=== PATIENT | female | born 1970 | race African-American/Black ===

== ENCOUNTER 2018-04-11 17:19 | Inpatient (IN) | payer OTHER ==
[2018-04-11 18:29] VITALS: BMI 29.9
--- NOTE | 2018-04-11 18:36 | HP ---
COWS - Scale Resting Pulse: 0= [place] 80 or Below Sweatin= Chills/Flushing Restless Observation: 1= Difficult to Sit Still Pupil Size: 1= Pupils >than Normal Bone or Joint Aches: 2= Severe Diffuse Aches Runny Nose/ Eye Tearin= Runny Nose/Eyes GI Upset > 30mins: 2= Nausea/Diarrhea Tremor Observation: 2= Slight Tremor Visible Yawning Observation: 1= 1-2x During Session Anxiety or Irritability: 2=Irritable/Anxious Goose Flesh Skin: 0=Smooth Skin COWS Score: 14 CIWA Score - CIWA Score Nausea/Vomitin Muscle Tremors: 2 Anxiety: 2 Agitation: 2 Paroxysmal Sweats: 1-Minimal Palms Moist Orientation: 0-Oriented Tacttile Disturbances: 1-Very Mild Itch/Numbness Auditory Disturbances: 1-Very Mild Visual Disturbances: 1-Very Mild Sensitivity Headache: 2-Mild CIWA-Ar Total Score: 14 Admission ROS [facility] - HPI Chief Complaint: i need help to sto using heroin and xanax Allergies/Adverse Reactions: Allergies Allergy/AdvReac Type Severity Reaction Status Date / Time ibuprofen Allergy Mild Rash Verified 04/11/18 17:58 No Known Drug Allergies Allergy Verified 04/11/18 17:58 History of Present Illness: this 47 years old female with heroin and xanax dependence seeking detox, withdrawal symptom,last detox in [place] in 2012 seizure withdrawal related in 05/2016 weight loss history of htn,asthma,gerd nicotine dependence bipolar disorder,depression,last medicated 2 months multiple admissions before,keep relapsing longest period of sobriety 5 years plan for rehab Exam Limitations: No Limitations - Ebola screening Have you traveled outside of the country in the last 21 days: No (N) Have you had contact with anyone from an Ebola affected area: No Do you have a fever: No - Review of Systems Constitutional: Chills, Loss of Appetite, Malaise, Night Sweats, Weakness, Unintentional Wgt. Loss EENT: reports: Tearing, Nose Congestion Respiratory: reports: No Symptoms reported Cardiac: reports: No Symptoms Reported GI: reports: Nausea, Poor Appetite, Vomiting, Abdominal cramping : reports: No Symptoms Reported Musculoskeletal: reports: Back Pain, Joint Pain, Muscle Pain, Joint Stiffness Integumentary: reports: Dryness Neuro: reports: Headache, Tremors Endocrine: reports: No Symptoms Reported Hematology: reports: No Symptoms Reported Psychiatric: reports: No Sypmtoms Reported, Judgement Intact, Mood/Affect Appropiate, Orientated x3 Patient History - Patient Medical History Hx Anemia: No Hx Asthma: Yes (on albuterol inhaler) Hx Chronic Obstructive Pulmonary Disease (COPD): No Hx Cancer: No Hx Cardiac Disorders: No Hx Congestive Heart Failure: No Hx Hypertension: Yes (non compliance last 2 moths ago) Hx Hypercholesterolemia: No Hx Pacemaker: No HX Cerebrovascular Accident: No Hx Seizures: Yes (last 07/2015) Hx Dementia: No Hx Diabetes: No Hx Gastrointestinal Disorders: Yes (gerd) Hx Liver Disease: No Hx Genitourinary Disorders: No Hx Sexually Transmitted Disorders: No Hx Renal Disease (ESRD): No Hx Thyroid Disease: No Hx Human Immunodeficiency Virus (HIV): No (last 2016 negative) Hx Hepatitis C: No Hx Depression: Yes (no med) Hx Suicide Attempt: Yes (cutter,over dose) Hx Bipolar Disorder: Yes Hx Schizophrenia: No Other Medical History: no suicidal,no homicidal - Patient Surgical History Hx Cholecystectomy: Yes ([facility] in 1997) - PPD History Previous Implant?: Yes Documented Results: Negative w/o proof Implanted On Prior [facility] Admission?: No PPD to be Administered?: Yes - Reproductive History Patient is a Female of Child Bearing Age (11 -55 yrs old): Yes LMP comment: 04/07/18 Patient : No - Smoking Cessation Smoking history: Current every day smoker Have you smoked in the past 12 months: Yes Aproximately how many cigarettes per day: 20 Cigars Per Day: 0 Hx Chewing Tobacco Use: No Initiated information on smoking cessation: Yes 'Breaking Loose' booklet given: 04/11/18 - Substance & Tx. History Hx Alcohol Use: Yes Hx Substance Use: Yes Substance Use Type: Heroin, Tranquilizers Hx Substance Use Treatment: Yes ([place] in 2012) - Substances Abused Heroin Route: Inhalation Frequency: Daily Amount used: 10-15 bags Age of first use: 23 Date of Last Use: 04/11/18 Alprazolam (Xanax) Route: Oral Frequency: Daily Amount used: 4- 2mg tablet Age of first use: 23 Date of Last Use: 04/11/18 Family Disease History - Family Disease History Family Disease History: Other: Father (dsa,alcohol,) Admission Physical Exam [facility] - Vital Signs Vital Signs: Vital Signs Temperature 97.8 F 04/11/18 17:54 Pulse Rate 80 04/11/18 17:54 Respiratory Rate 16 04/11/18 17:54 Blood Pressure 191/126 H 04/11/18 17:54 O2 Sat by Pulse Oximetry (%) - Physical General Appearance: Yes: Moderate Distress, Tremorous, Irritable, Sweating, Anxious HEENTM: Yes: Normal ENT Inspection, Pharynx Normal Respiratory: Yes: Within Normal Limits, Lungs Clear, No Respiratory Distress Neck: Yes: Within Normal Limits, Supple, Trachea in good position Breast: Yes: Breast Exam Deferred Cardiology: Yes: Within Normal Limits, Regular Rhythm, Regular Rate, S1, S2 Abdominal: Yes: Within Normal Limits, Normal Bowel Sounds, Non Tender, Flat, Soft Genitourinary: Yes: Within Normal Limits Back: Yes: Muscle Spasm Extremities: Yes: Within Normal Limits, Normal Range of Motion, Tremors Neurological: Yes: rattle leak and squeak repairer II-XII NML intact, Fully Oriented, Alert, Motor Strength 5/5 Integumentary: Yes: Dry Lymphatic: Yes: Within Normal Limits - Diagnostic (1) Opioid dependence with withdrawal Current Visit: Yes Status: Acute (2) Uncomplicated sedative, hypnotic or anxiolytic withdrawal Current Visit: Yes Status: Acute (3) Drug withdrawal seizure Current Visit: Yes Status: Acute (4) Nicotine dependence Current Visit: Yes Status: Acute (5) Essential hypertension Current Visit: Yes Status: Acute (6) Low back pain with right-sided sciatica Current Visit: Yes Status: Acute (7) Bipolar disorder Current Visit: Yes Status: Acute (8) Depression Current Visit: Yes Status: Acute Cleared for Admission [facility] - Detox or Rehab [facility] Level of Care: Medically Managed Detox Regimen/Protocol: Methadone/Valium
[2018-04-11] MEDS ORDERED: MENTHOL/PHENOL 1 EACH UD MM PRN (19:11)
[2018-04-11] MEDS ORDERED: ACETAMINOPHEN 325 MG TABLET (FP) PO PRN (19:11)
[2018-04-11] MEDS ORDERED: MAGNESIUM HYDROX 2400MG/30ML ORAL SUSPENSION 30 ML CUP PO PRN (19:11)
[2018-04-11] MEDS ORDERED: MAGNESIUM CITRATE 300 ML BOTTLE PO PRN (19:11)
[2018-04-11] MEDS ORDERED: guaiFENesin/D-METHORPHAN HB 10 ML UNIT-DOSE CUPS PO PRN (19:11)
[2018-04-11] MEDS ORDERED: P-EPHED 60MG/TRIPROLIDI 2.5MG TABLET PO PRN (19:11)
[2018-04-11] MEDS ORDERED: MAG HYDROX/AL HYDROX/SIMETH 30 ML UNIT-DOSE CUP PO PRN (19:11)
[2018-04-11] MEDS ORDERED: LOPERAMIDE HCL 2 MG CAPSULE PO PRN (19:11)
[2018-04-11] MEDS ORDERED: NICOTINE POLACRILEX 2 MG GUM BC PRN (19:11)
[2018-04-11] MEDS ORDERED: diazePAM 5 MG TABLET PO ONE (19:30)
[2018-04-11] MEDS ORDERED: METHADONE HCL 10 MG TABLET (FOR DETOX USE ONLY) PO ONE ×2 (19:30→23:00)
[2018-04-11] MEDS ORDERED: cloNIDine HCL 0.1 MG TABLET PO ONE (19:30)
--- NOTE | 2018-04-11 19:36 | PN ---
S Progress Note Note: ekg poor quality,repeat in am at 0900 on 04/12/18
[2018-04-11] MEDS: CYCLOBENZAPRINE HCL 10 MG TABLET (FP) PO PRN (22:41)
[2018-04-11] MEDS: cloNIDine HCL 0.1 MG TABLET PO SCH (22:41)
[2018-04-11] MEDS: LISINOPRIL 20 MG TABLET (FP) PO SCH (22:41)
[2018-04-11] MEDS: MELATONIN 5 MG TABLETS PO PRN (22:41)
[2018-04-11] MEDS: THIAMINE HCL 100 MG TABLET (FP) PO SCH (22:42)
[2018-04-11] MEDS: diazePAM 5 MG TABLET PO SCH (22:42)
[2018-04-11 22:47] LABS: URINE APPEARANCE CLOUDY; URINE BILIRUBIN NEGATIVE (<2.0 mg/dL); URINE COLOR AMBER; URINE GLUCOSE (UA) NEGATIVE (NEGATIVE); URINE KETONE NEGATIVE (NEGATIVE); URINE LEUK ESTERASE NEGATIVE (NEGATIVE); URINE NITRITE NEGATIVE (NEGATIVE); URINE PROTEIN 1+ (NEGATIVE); URINE UROBILINOGEN 4.0 E.U/dl mg/dL (0.2-1.0)
[2018-04-11 22:54] LABS: EPI CELLS RARE /HPF (FEW); GRANULAR CASTS 2 /lpf; URINE HYALINE CAST 2 /lpf; URINE MUCUS RARE
[2018-04-12] MEDS: diazePAM 5 MG TABLET PO SCH ×3 (05:13→23:18)
--- NOTE | 2018-04-12 09:16 | CONSULT ---
[facility] Psychiatric Consult - Data Date of interview: 04/12/18 Admission source: [facility] Identifying data: This is a 47 years old female, single mother of four, homeless , unemployed, onPA support, with psychiatric hospitalization history, history of Bipolar Disordewr, reports Heroin, Xanax, Alcohol and Nicotine ndependence history, withdrawal symptoms and seeking detox. Substance Abuse History: Smoking history: Current every day smoker. Have you smoked in the past 12 months: Yes. Aproximately how many cigarettes per day: 20. Cigars Per Day: 0. Hx Chewing Tobacco Use: No. Initiated information on smoking cessation: Yes. 'Breaking Loose' booklet given: 04/11/18. - Substance & Tx. History. Hx Alcohol Use: Yes. Hx Substance Use: Yes. Substance Use Type : Heroin, Tranquilizers. Hx Substance Use Treatment: Yes ([place] in 2012) . - Substances Abused. Heroin. Route: Inhalation. Frequency: Daily. Amount used: 10-15 bags. Age of first use: 23. Date of Last Use: 04/11/18. * * Alprazolam (Xanax). Route: Oral. Frequency: Daily. Amount used: 4- 2mg tablet. Age of first use: 23. Date of Last Use: 04/11/18 Medical History: Asthma, LBP, HTN, GERD, Seizure history. Psychiatric History: Patient reports top carry Bipolar Disorder, reports most recent psychiatric admission on 2015 at [facility], denies suicidal, homicidal history, as per computer there is a history of OD and Cutting self in the past, denies suicidal homicidal ideation at this time. Patient reports taking prior to admission: Trazodone 100 mg po qhs. Depakote 1000mg po bid. Seroquel 300mg po bid. Reports not taking medications for the last two weeks. Physical/Sexual Abuse/Trauma History: Denies Additional Comment: Trazodone 100 mg po qhs. Depakote 1000mg po bid. Seroquel 300mg po bid Psychiatric Findings - Problem List ([place] 1, 2,3) (1) HTN (hypertension) Current Visit: Yes Status: Acute (2) GERD (gastroesophageal reflux disease) Current Visit: Yes Status: Acute (3) Bipolar disorder Current Visit: Yes Status: Acute (4) Depression Current Visit: Yes Status: Acute (5) Essential hypertension Current Visit: Yes Status: Acute (6) Low back pain with right-sided sciatica Current Visit: Yes Status: Acute (7) Nicotine dependence Current Visit: Yes Status: Acute (8) Opioid dependence with withdrawal Current Visit: Yes Status: Acute (9) Uncomplicated sedative, hypnotic or anxiolytic withdrawal Current Visit: Yes Status: Acute - Initial Treatment Plan Initial Treatment Plan: Trazodone 100 mg po qhs. Depakote 600mg po bid. Seroquel 300mg po qhs. Depakote blood level
--- NOTE | 2018-04-12 09:46 | PN ---
[facility] CIWA - CIWA Score Nausea/Vomitin-No Nausea/No Vomiting Muscle Tremors: 4-Moderate,w/Arms Extend Anxiety: 3 Agitation: 3 Paroxysmal Sweats: 3 Orientation: 0-Oriented Tacttile Disturbances: 0-None Auditory Disturbances: 0-None Visual Disturbances: 0-None Headache: 0-None Present CIWA-Ar Total Score: 13 [facility] COWS - Scale Resting Pulse: 0= [place] 80 or Below Sweatin=Flushed/Facial Moisture Restless Observation: 0= Sits Still Pupil Size: 0= Normal to Room Light Bone or Joint Aches: 2= Severe Diffuse Aches Runny Nose/ Eye Tearin= Runny Nose/Eyes GI Upset > 30mins: 0= None Tremor Observation of Outstretched Hands: 2= Slight Tremor Visible Yawning Observation: 2= >3x During Session Anxiety or Irritability: 2=Irritable/Anxious Goose Flesh Skin: 0=Smooth Skin COWS Score: 12 S Progress Note (SOAP) Subjective: sweats shakes interrupted sleep agitation anxiety body aches irritable Objective: 04/12/18 10:37 Vital Signs Temperature 98.2 F 04/12/18 10:27 Pulse Rate 70 04/12/18 10:27 Respiratory Rate 18 04/12/18 10:27 Blood Pressure 156/90 04/12/18 10:27 O2 Sat by Pulse Oximetry (%) Laboratory Tests 04/11/18 04/12/18 22:30 07:00 WBC 5.5 RBC 3.87 Hgb 12.1 Hct 37.1 MCV 96.0 MCH 31.4 MCHC 32.7 RDW 13.1 Plt Count 206 MPV 9.1 Urine Color Charlene Urine Appearance Cloudy Urine pH 5.0 Ur Specific [place] 1.025 Urine Protein 1+ H Urine Glucose (UA) Negative Urine Ketones Negative Urine Blood 3+ H Urine Nitrite Negative Urine Bilirubin Negative Urine Urobilinogen 4.0 e.u/dl H Ur Leukocyte Esterase Negative Urine WBC (Auto) 8 Urine RBC (Auto) 8 Ur Epithelial Cells Rare Hyaline Casts 2 Granular Casts 2 Urine Mucus Rare rest of labs pending aao3 ambulating no acute distress Assessment: 04/12/18 10:37 withdrawal sx Plan: continue detox increase fluids rest of labs pending
--- NOTE | 2018-04-12 09:49 | EKG ---
Test Reason : Blood Pressure : / mmHG Vent. Rate : 074 BPM Atrial Rate : 074 BPM P-R Int : 152 ms QRS Dur : 054 ms QT Int : 334 ms P-R-T Axes : 045 041 005 degrees QTc Int : 370 ms NORMAL SINUS RHYTHM BASELINE ARTIFACT NONSPECIFIC ST AND T WAVE ABNORMALITY ABNORMAL ECG NO PREVIOUS ECGS AVAILABLE Confirmed by ERIC DOBBS, MARVIN ([id number]) on 04/12/2018 9:49:31 AM Referred By: Confirmed By:MARVIN REYES MD
[2018-04-12] MEDS ORDERED: METHADONE HCL 10 MG TABLET (FOR DETOX USE ONLY) PO SCH (10:00)
[2018-04-12 10:26] LABS: HEMATOCRIT 37.1 % (32.4-45.2); HEMOGLOBIN 12.1 GM/dL (10.7-15.3); MCH 31.4 pg (25.7-33.7); MCHC 32.7 g/dl (32.0-36.0); MEAN PLT VOLUME 9.1 fl (7.5-11.1); PLATELET COUNT 206 K/MM3 (134-434); RBC 3.87 M/mm3 (3.60-5.2); RDW 13.1 % (11.6-15.6); WHITE BLOOD COUNT 5.5 K/mm3 (4.0-10.0)
[2018-04-12] MEDS: PRENATAL VITAMINS W/ FOLIC ACID TABLET (FP) PO SCH (10:37)
[2018-04-12] MEDS: LISINOPRIL 20 MG TABLET (FP) PO SCH ×2 (10:37→23:18)
[2018-04-12] MEDS: CYCLOBENZAPRINE HCL 10 MG TABLET (FP) PO PRN ×2 (10:37→23:18)
[2018-04-12] MEDS: diazePAM 5 MG TABLET PO PRN (10:37)
[2018-04-12] MEDS: cloNIDine HCL 0.1 MG TABLET PO SCH ×2 (10:37→23:19)
[2018-04-12] MEDS: DIVALPROEX SODIUM 500 MG TABLET E.C. PO SCH ×2 (10:37→23:18)
[2018-04-12 10:52] LABS: ALBUMIN 2.8 g/dl (3.4-5.0); ALK PHOS 120 U/L (45-117); ANION GAP 7 MMOL/L (8-16); BILIRUBIN,TOTAL 0.4 mg/dL (0.2-1); BLOOD UREA NITROGEN 18 mg/dL (7-18); CALCIUM 8.9 mg/dL (8.5-10.1); CHLORIDE 106 mmol/L (98-107); CO2 29 mmol/L (21-32); GLUCOSE,RANDOM 87 mg/dL (74-106); POTASSIUM 4.8 mmol/L (3.5-5.1); SGOT/AST 20 U/L (15-37); SGPT/ALT 21 U/L (13-61); SODIUM 142 mmol/L (136-145); TOT PROT 6.4 g/dl (6.4-8.2)
--- NOTE | 2018-04-12 15:48 | PN ---
S Progress Note Note: pt seen c/o pelvic pain. pt states her pain is not new she has experienced this same pain in the past especially when she is detoxing. Pt states she has had normal urine output and has moved her bowels. Pt is allergic to ibuprofen and is refusing to go to our main hospital for evaluation. therefore, pt will be ordered lidocaine patch, flexiril, and u/s in the morning a one time dose of baclofen. encouraged warm compress prn. pt in agreement.
[2018-04-12] MEDS ORDERED: LIDOCAINE 5% TOPICAL PATCH TP ONE (17:00)
[2018-04-12] MEDS ORDERED: BACLOFEN 10 MG TABLET (FP) PO ONE (17:00)
[2018-04-12] MEDS ORDERED: LIDOCAINE PATCH REMOVAL MC SCH (22:00)
[2018-04-12] MEDS: THIAMINE HCL 100 MG TABLET (FP) PO SCH (23:18)
[2018-04-12] MEDS: traZODone HCL 100 MG TABLET (FP) PO SCH (23:18)
[2018-04-12] MEDS: QUEtiapine FUMARATE 300 MG TABLET PO SCH (23:19)
[2018-04-13] MEDS ORDERED: cloNIDine HCL 0.1 MG TABLET PO ONE (06:39)
--- NOTE | 2018-04-13 06:43 | PN ---
[facility] Progress Note Note: Patient's blood pressure this morning is B/P 157/108. Patient is asymptomatic. Vital Signs Temperature 97.9 F 04/13/18 06:39 Pulse Rate 74 04/13/18 06:39 Respiratory Rate 18 04/13/18 06:39 Blood Pressure 157/108 H 04/13/18 06:39 O2 Sat by Pulse Oximetry (%) Action: Clonidine 0.1mg tablet oral ordered
[2018-04-13] MEDS: DIVALPROEX SODIUM 500 MG TABLET E.C. PO SCH ×2 (10:07→22:08)
[2018-04-13] MEDS: diazePAM 5 MG TABLET PO SCH ×2 (10:08→22:08)
[2018-04-13] MEDS: PRENATAL VITAMINS W/ FOLIC ACID TABLET (FP) PO SCH (10:08)
[2018-04-13] MEDS: amLODIPine BESYLATE 10 MG TABLET (FP) PO SCH (10:09)
[2018-04-13] MEDS: LOSARTAN POTASSIUM 50 MG TABLET (FP) PO SCH (10:09)
[2018-04-13] MEDS: METHADONE HCL 5 MG TABLET (FOR DETOX USE ONLY) PO SCH (10:09)
--- NOTE | 2018-04-13 10:17 | PN ---
[facility] CIWA - CIWA Score Nausea/Vomitin-No Nausea/No Vomiting Muscle Tremors: 3 Anxiety: 3 Agitation: 3 Paroxysmal Sweats: 3 Orientation: 0-Oriented Tacttile Disturbances: 0-None Auditory Disturbances: 0-None Visual Disturbances: 0-None Headache: 0-None Present CIWA-Ar Total Score: 12 S COWS - Scale Resting Pulse: 0= [place] 80 or Below Sweatin=Flushed/Facial Moisture Restless Observation: 1= Difficult to Sit Still Pupil Size: 0= Normal to Room Light Bone or Joint Aches: 2= Severe Diffuse Aches Runny Nose/ Eye Tearin= None GI Upset > 30mins: 0= None Tremor Observation of Outstretched Hands: 2= Slight Tremor Visible Yawning Observation: 2= >3x During Session Anxiety or Irritability: 2=Irritable/Anxious Goose Flesh Skin: 0=Smooth Skin COWS Score: 11 [facility] Progress Note (SOAP) Subjective: pelvic pain subsided not as painful as yesterday sweats shakes chills body aches Objective: 04/13/18 10:14 Vital Signs Temperature 98.6 F 04/13/18 09:56 Pulse Rate 78 04/13/18 09:56 Respiratory Rate 16 04/13/18 09:56 Blood Pressure 142/96 04/13/18 09:56 O2 Sat by Pulse Oximetry (%) Laboratory Tests 04/11/18 04/12/18 04/12/18 22:30 07:00 07:00 WBC 5.5 RBC 3.87 Hgb 12.1 Hct 37.1 MCV 96.0 MCH 31.4 MCHC 32.7 RDW 13.1 Plt Count 206 MPV 9.1 Sodium 142 Potassium 4.8 Chloride 106 Carbon Dioxide 29 Anion Gap 7 L BUN 18 Creatinine 1.0 Creat Clearance w eGFR 59.69 Random Glucose 87 Calcium 8.9 Total Bilirubin 0.4 AST 20 ALT 21 Alkaline Phosphatase 120 H Total Protein 6.4 Albumin 2.8 L Urine Color Charlene Urine Appearance Cloudy Urine pH 5.0 Ur Specific [place] 1.025 Urine Protein 1+ H Urine Glucose (UA) Negative Urine Ketones Negative Urine Blood 3+ H Urine Nitrite Negative Urine Bilirubin Negative Urine Urobilinogen 4.0 e.u/dl H Ur Leukocyte Esterase Negative Urine WBC (Auto) 8 Urine RBC (Auto) 8 Ur Epithelial Cells Rare Hyaline Casts 2 Granular Casts 2 Urine Mucus Rare RPR Titer 04/12/18 07:00 WBC RBC Hgb Hct MCV MCH MCHC RDW Plt Count MPV Sodium Potassium Chloride Carbon Dioxide Anion Gap BUN Creatinine Creat Clearance w eGFR Random Glucose Calcium Total Bilirubin AST ALT Alkaline Phosphatase Total Protein Albumin Urine Color Urine Appearance Urine pH Ur Specific [place] Urine Protein Urine Glucose (UA) Urine Ketones Urine Blood Urine Nitrite Urine Bilirubin Urine Urobilinogen Ur Leukocyte Esterase Urine WBC (Auto) Urine RBC (Auto) Ur Epithelial Cells Hyaline Casts Granular Casts Urine Mucus RPR Titer Nonreactive aaox3 lying in bed no acute distress u/s pending Assessment: 04/13/18 10:16 withdrawal sx Plan: continue detox increase fluids u/s pending continue lidocaine patch muscle relaxant prn repeat u/a with c/s
[2018-04-13] MEDS: CYCLOBENZAPRINE HCL 10 MG TABLET (FP) PO PRN (12:03)
--- NOTE | 2018-04-13 15:10 | PN ---
S Progress Note Note: U/S results shows pt has fibroids. copy provided to pt. 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
--- NOTE | 2018-04-13 16:11 | EKG ---
Test Reason : Blood Pressure : / mmHG Vent. Rate : 075 BPM Atrial Rate : 075 BPM P-R Int : 136 ms QRS Dur : 086 ms QT Int : 394 ms P-R-T Axes : 062 022 039 degrees QTc Int : 439 ms NORMAL SINUS RHYTHM POSSIBLE LEFT ATRIAL ENLARGEMENT ST ELEVATION, CONSIDER EARLY REPOLARIZATION BORDERLINE ECG WHEN COMPARED WITH ECG OF 11-APR-2018 19:26, ST ELEVATION HAS REPLACED ST DEPRESSION IN ANTERIOR LEADS NONSPECIFIC T WAVE ABNORMALITY HAS REPLACED INVERTED T WAVES IN INFERIOR LEADS NONSPECIFIC T WAVE ABNORMALITY NO LONGER EVIDENT IN LATERAL LEADS QT HAS LENGTHENED Confirmed by MD LENNY, GLADYS ([id number]) on 04/13/2018 4:11:16 PM Referred By: Confirmed By:GLADYS GALVEZ MD
[2018-04-13] MEDS: QUEtiapine FUMARATE 300 MG TABLET PO SCH (22:08)
[2018-04-13] MEDS: THIAMINE HCL 100 MG TABLET (FP) PO SCH (22:08)
[2018-04-13] MEDS: traZODone HCL 100 MG TABLET (FP) PO SCH (22:08)
[2018-04-14] MEDS ORDERED: IBUPROFEN 400 MG TABLET (FP) PO ONE (09:24)
[2018-04-14] MEDS: METHADONE HCL 5 MG TABLET (FOR DETOX USE ONLY) PO SCH (10:20)
[2018-04-14] MEDS: DIVALPROEX SODIUM 500 MG TABLET E.C. PO SCH ×2 (10:20→23:12)
[2018-04-14] MEDS: LOSARTAN POTASSIUM 50 MG TABLET (FP) PO SCH (10:20)
[2018-04-14] MEDS: PRENATAL VITAMINS W/ FOLIC ACID TABLET (FP) PO SCH (10:20)
[2018-04-14] MEDS: diazePAM 5 MG TABLET PO SCH ×2 (10:20→23:12)
[2018-04-14] MEDS: amLODIPine BESYLATE 10 MG TABLET (FP) PO SCH (10:20)
[2018-04-14] MEDS: CYCLOBENZAPRINE HCL 10 MG TABLET (FP) PO PRN (10:22)
[2018-04-14] MEDS ORDERED: COLLOIDAL OATMEAL 1 BAR EACH TP PRN (10:34)
--- NOTE | 2018-04-14 10:34 | PN ---
[facility] Progress Note (SOAP) Subjective: body aches sweats irritable pain is more tolerable but i want something to keep this pain from throbbing. Objective: 04/14/18 10:33 Vital Signs Temperature 97.9 F 04/14/18 09:35 Pulse Rate 76 04/14/18 09:35 Respiratory Rate 16 04/14/18 09:35 Blood Pressure 132/79 04/14/18 09:35 O2 Sat by Pulse Oximetry (%) aaox3 ambulating no acute distress Assessment: 04/14/18 10:35 withdrawal sx Plan: continue detox increase fluids motrin 800mg ordered.
[2018-04-14] MEDS ORDERED: diphenhydrAMINE HCL 25 MG CAPSULE (FP) PO PRN (10:38)
--- NOTE | 2018-04-14 10:38 | PN ---
S Progress Note Note: pt states she is not allergic to motrin. the only thing that she experienced a long time ago was a mild rash which disappeared afterwards. Pt believes it was not motrin related. Motrin ordered for patient to assist with her throbbing pain to her pelvic area. will continue to monitor for any allergic related issues and how well her pain is tolerated. benadryl also ordered prn.
[2018-04-14] MEDS: LIDOCAINE 5% TOPICAL PATCH TP SCH (12:47)
[2018-04-14] MEDS ORDERED: PANTOPRAZOLE 40 MG TABLET (FP) PO ONE (14:00)
[2018-04-14] MEDS ORDERED: IBUPROFEN 400 MG TABLET (FP) PO PRN (15:40)
[2018-04-14] MEDS: hydrOXYzine PAMOATE 25 MG CAPSULE (FP) PO PRN ×2 (18:44→23:11)
[2018-04-14] MEDS: diazePAM 5 MG TABLET PO PRN (18:45)
[2018-04-14 19:23] LABS: URINE APPEARANCE CLEAR; URINE BILIRUBIN NEGATIVE (<2.0 mg/dL); URINE COLOR YELLOW; URINE GLUCOSE (UA) NEGATIVE (NEGATIVE); URINE KETONE NEGATIVE (NEGATIVE); URINE LEUK ESTERASE NEGATIVE (NEGATIVE); URINE NITRITE NEGATIVE (NEGATIVE); URINE PROTEIN NEGATIVE (NEGATIVE)
[2018-04-14] MEDS: QUEtiapine FUMARATE 300 MG TABLET PO SCH (23:11)
[2018-04-14] MEDS: THIAMINE HCL 100 MG TABLET (FP) PO SCH (23:11)
[2018-04-14] MEDS: traZODone HCL 100 MG TABLET (FP) PO SCH (23:12)
[2018-04-14] MEDS: MELATONIN 5 MG TABLETS PO PRN (23:13)
[2018-04-15] MEDS: LIDOCAINE PATCH REMOVAL MC SCH ×2 (00:31→22:24)
[2018-04-15] MEDS ORDERED: METHADONE HCL 10 MG TABLET (FOR DETOX USE ONLY) PO SCH (10:00)
[2018-04-15] MEDS ORDERED: diazePAM 5 MG TABLET PO SCH (10:00)
[2018-04-15] MEDS: LOSARTAN POTASSIUM 50 MG TABLET (FP) PO SCH (10:11)
[2018-04-15] MEDS: amLODIPine BESYLATE 10 MG TABLET (FP) PO SCH (10:11)
[2018-04-15] MEDS: PRENATAL VITAMINS W/ FOLIC ACID TABLET (FP) PO SCH (10:11)
[2018-04-15] MEDS: PANTOPRAZOLE 40 MG TABLET (FP) PO SCH (10:11)
[2018-04-15] MEDS: DIVALPROEX SODIUM 500 MG TABLET E.C. PO SCH ×2 (10:11→22:23)
[2018-04-15] MEDS: LIDOCAINE 5% TOPICAL PATCH TP SCH (10:13)
--- NOTE | 2018-04-15 11:11 | PN ---
[facility] Progress Note (SOAP) Subjective: feeling better tired Objective: 04/15/18 11:11 Vital Signs Temperature 97.7 F 04/15/18 09:10 Pulse Rate 81 04/15/18 09:10 Respiratory Rate 16 04/15/18 09:10 Blood Pressure 119/81 04/15/18 09:10 O2 Sat by Pulse Oximetry (%) aaox3 ambulating no acute distress Assessment: 04/15/18 11:11 mild withdrawal sx Plan: continue detox increase fluids d/c in am
[2018-04-15] MEDS: IBUPROFEN 400 MG TABLET (FP) PO PRN (12:14)
[2018-04-15] MEDS: CYCLOBENZAPRINE HCL 10 MG TABLET (FP) PO PRN ×2 (17:29→22:24)
[2018-04-15] MEDS: hydrOXYzine PAMOATE 25 MG CAPSULE (FP) PO PRN (17:29)
[2018-04-15] MEDS: traZODone HCL 100 MG TABLET (FP) PO SCH (22:23)
[2018-04-15] MEDS: THIAMINE HCL 100 MG TABLET (FP) PO SCH (22:23)
[2018-04-15] MEDS: QUEtiapine FUMARATE 300 MG TABLET PO SCH (22:24)
[2018-04-16] MEDS ORDERED: METHADONE HCL 5 MG TABLET (FOR DETOX USE ONLY) PO SCH (06:00)
[2018-04-16 06:13] VITALS: TEMP 98.1
--- NOTE | 2018-04-16 08:48 | DS ---
[facility] Detox Discharge Summary Admission Date: 04/11/18 Discharge Date: 04/16/18 - History Present History: Opioid Dependence - Physical Exam Results Vital Signs: Vital Signs Temperature 98.1 F 04/16/18 06:13 Pulse Rate 79 04/16/18 06:13 Respiratory Rate 18 04/16/18 06:13 Blood Pressure 124/74 04/16/18 06:13 O2 Sat by Pulse Oximetry (%) - Treatment Hospital Course: Detox Protocol Followed, Detoxed Safely, Responded well, Discharged Condition Good, Rehab Referral Accepted - Medication Discharge Medications: Ambulatory Orders Clonidine HCl 0.2 mg PO BID 04/11/18 Lisinopril 20 mg PO BID 04/11/18 Omeprazole 80 mg PO DAILY 04/11/18 Divalproex [Depakote -] 1,000 mg PO BID #60 tablet.ec 04/12/18 Quetiapine Fumarate [Seroquel] 300 mg PO BID #60 tablet 04/12/18 traZODone HCL [Trazodone HCl] 100 mg PO HS #30 tablet 04/12/18 - Diagnosis (1) Asthma Current Visit: Yes Status: Chronic Qualifiers: Asthma severity: mild (2) Bipolar disorder Current Visit: Yes Status: Chronic (3) Depression Current Visit: Yes Status: Chronic (4) Drug withdrawal seizure Current Visit: Yes Status: Acute (5) Essential hypertension Current Visit: Yes Status: Chronic (6) GERD (gastroesophageal reflux disease) Current Visit: Yes Status: Chronic Qualifiers: Esophagitis presence: without esophagitis Qualified Code(s): K21.9 - Gastro -esophageal reflux disease without esophagitis (7) HTN (hypertension) Current Visit: Yes Status: Chronic Qualifiers: Hypertension type: essential hypertension Qualified Code(s): I10 - Essential (primary) hypertension (8) Low back pain with right-sided sciatica Current Visit: Yes Status: Acute (9) Nicotine dependence Current Visit: Yes Status: Chronic Qualifiers: Nicotine product type: cigarettes Substance use status: uncomplicated Qualified Code(s): F17.210 - Nicotine dependence, cigarettes, uncomplicated (10) Opioid dependence with withdrawal Current Visit: Yes Status: Chronic (11) Uncomplicated sedative, hypnotic or anxiolytic withdrawal Current Visit: Yes Status: Chronic - AMA Did Patient Leave Against Medical Advice: No (referred [facility])
[2018-04-16] MEDS: IBUPROFEN 400 MG TABLET (FP) PO PRN (09:11)
[2018-04-16] MEDS: DIVALPROEX SODIUM 500 MG TABLET E.C. PO SCH (09:11)
[2018-04-16] MEDS: PANTOPRAZOLE 40 MG TABLET (FP) PO SCH (09:11)
[2018-04-16] MEDS: amLODIPine BESYLATE 10 MG TABLET (FP) PO SCH (09:11)
[2018-04-16] MEDS: LOSARTAN POTASSIUM 50 MG TABLET (FP) PO SCH (09:11)
[2018-04-16] MEDS: CYCLOBENZAPRINE HCL 10 MG TABLET (FP) PO PRN (09:15)
[2018-04-16 09:27] VITALS: BP 145/101; PULSE 98
[2018-04-16] MEDS: LIDOCAINE 5% TOPICAL PATCH TP SCH (10:23)
[2018-04-16] MEDS: PRENATAL VITAMINS W/ FOLIC ACID TABLET (FP) PO SCH (10:23)
== END 2018-04-16 11:25 | disposition other institution (70) | DRG 773 ==
LOC: YASAS 17:19 → Y6N 19:12
PROC: HZ2ZZZZ Detoxification Services for Substance Abuse Treatment (ICD-10-PCS; principal; 2018-04-11)
DX: F11.23 Opioid dependence with withdrawal (principal); F13.230 Sedative, hypnotic or anxiolytic dependence with withdrawal, uncomplicated; F17.210 Nicotine dependence, cigarettes, uncomplicated; F31.9 Bipolar disorder, unspecified; F32.9 Major depressive disorder, single episode, unspecified; I10 Essential (primary) hypertension; K21.9 Gastro-esophageal reflux disease without esophagitis; M54.41 Lumbago with sciatica, right side; G40.509 Epileptic seizures related to external causes, not intractable, without status epilepticus; J45.909 Unspecified asthma, uncomplicated; D25.9 Leiomyoma of uterus, unspecified; Z91.5 Personal history of self-harm
CPT/HCPCS: 36415; 76856-TC; 80053; 80164; 81003; 81015; 85027; 86593; 87086; 93005; 93010; J0475; J0735

== ENCOUNTER 2018-04-16 11:19 | Inpatient (IN) | payer OTHER ==
[2018-04-16] MEDS ORDERED: IBUPROFEN 400 MG TABLET (FP) PO PRN (12:45)
[2018-04-16] MEDS ORDERED: MENTHOL/PHENOL 1 EACH UD MM PRN (12:45)
[2018-04-16] MEDS ORDERED: guaiFENesin/D-METHORPHAN HB 10 ML UNIT-DOSE CUPS PO PRN (12:45)
[2018-04-16] MEDS ORDERED: NICOTINE POLACRILEX 4 MG GUM BUC PRN (12:45)
[2018-04-16] MEDS ORDERED: MAGNESIUM HYDROX 2400MG/30ML ORAL SUSPENSION 30 ML CUP PO PRN (12:45)
[2018-04-16] MEDS ORDERED: P-EPHED 60MG/TRIPROLIDI 2.5MG TABLET PO PRN (12:45)
[2018-04-16] MEDS ORDERED: MAG HYDROX/AL HYDROX/SIMETH 30 ML UNIT-DOSE CUP PO PRN (12:45)
[2018-04-16] MEDS ORDERED: LOPERAMIDE HCL 2 MG CAPSULE PO PRN (12:45)
[2018-04-16] MEDS ORDERED: MAGNESIUM CITRATE 300 ML BOTTLE PO PRN (12:45)
--- NOTE | 2018-04-16 13:41 | HP ---
[facility] Rehab Assess/Revision - Admission History Admitted to Rehab from: [facility] Date of Admission to Rehab: 04/16/18 - Vital signs Vital Signs: Vital Signs Period Temp Pulse Resp BP Sys/Courtney Pulse Ox Last 24 Hr 98.0 F-98.2 F 91-92 18-18 124-149/81-93 - Findings Detox History & Physical reviewed: Yes Concur with findings: Yes Inpatient Rehab Admission - Initial Determination Are CD services needed?: Yes Free of communicable disease: Yes Not in need of hospitalization: Yes - Rehab Admission Criteria Patient is meeting Inpatient Rehab admission criteria:: Yes
[2018-04-16] MEDS: CYCLOBENZAPRINE HCL 10 MG TABLET (FP) PO PRN (14:52)
[2018-04-16] MEDS: LIDOCAINE 5% TOPICAL PATCH TP SCH (14:52)
[2018-04-16] MEDS: IBUPROFEN 600 MG TABLET (FP) PO PRN (17:53)
[2018-04-16] MEDS: LIDOCAINE PATCH REMOVAL MC SCH (21:40)
[2018-04-16] MEDS: THIAMINE HCL 100 MG TABLET (FP) PO SCH (21:40)
[2018-04-16] MEDS ORDERED: MELATONIN 5 MG TABLETS PO PRN (22:00)
[2018-04-17] MEDS: IBUPROFEN 600 MG TABLET (FP) PO PRN (08:23)
[2018-04-17] MEDS: CYCLOBENZAPRINE HCL 10 MG TABLET (FP) PO PRN (08:24)
[2018-04-17] MEDS: LIDOCAINE 5% TOPICAL PATCH TP SCH (09:16)
[2018-04-17] MEDS: NICOTINE 21 MG/24 HOURS TOPICAL PATCH TD SCH (09:17)
[2018-04-17] MEDS: PRENATAL VITAMINS W/ FOLIC ACID TABLET (FP) PO SCH (09:17)
[2018-04-17] MEDS: hydrOXYzine PAMOATE 50 MG CAPSULE (FP) PO PRN (09:20)
[2018-04-17] MEDS ORDERED: PATIENT'S OWN MEDICATION (NON-FORMULARY) (Clonidine Hcl [Clonidine Hcl] 0.2 MG) PO SCH (10:30)
[2018-04-17] MEDS: cloNIDine HCL 0.1 MG TABLET PO SCH ×2 (11:17→21:39)
[2018-04-17] MEDS: LISINOPRIL 20 MG TABLET (FP) PO SCH ×2 (11:17→21:39)
[2018-04-17] MEDS ORDERED: DIVALPROEX SODIUM 500 MG TABLET E.C. PO SCH (12:00)
[2018-04-17] MEDS ORDERED: PT OWN MED DRAWER 7, Y5N ONE (20:30)
[2018-04-17] MEDS: QUEtiapine FUMARATE 300 MG TABLET PO SCH (21:38)
[2018-04-17] MEDS: traZODone HCL 100 MG TABLET (FP) PO SCH (21:39)
[2018-04-17] MEDS: THIAMINE HCL 100 MG TABLET (FP) PO SCH (21:39)
[2018-04-17] MEDS: DIVALPROEX SODIUM 500 MG TABLET E.C. PO SCH (21:40)
[2018-04-17] MEDS: LIDOCAINE PATCH REMOVAL MC SCH (21:40)
[2018-04-17] MEDS: RANITIDINE HCL 150 MG TABLET (FP) PO SCH (22:03)
[2018-04-18] MEDS: CYCLOBENZAPRINE HCL 10 MG TABLET (FP) PO PRN ×2 (06:39→21:38)
[2018-04-18] MEDS: IBUPROFEN 600 MG TABLET (FP) PO PRN ×2 (06:39→21:38)
[2018-04-18] MEDS: LIDOCAINE 5% TOPICAL PATCH TP SCH (09:07)
[2018-04-18] MEDS: PRENATAL VITAMINS W/ FOLIC ACID TABLET (FP) PO SCH (09:07)
[2018-04-18] MEDS: NICOTINE 21 MG/24 HOURS TOPICAL PATCH TD SCH (09:07)
[2018-04-18] MEDS: cloNIDine HCL 0.1 MG TABLET PO SCH ×2 (09:07→21:38)
[2018-04-18] MEDS: DIVALPROEX SODIUM 500 MG TABLET E.C. PO SCH ×2 (09:07→21:38)
[2018-04-18] MEDS: LISINOPRIL 20 MG TABLET (FP) PO SCH ×2 (09:08→21:38)
[2018-04-18] MEDS: RANITIDINE HCL 150 MG TABLET (FP) PO SCH ×2 (09:08→21:38)
[2018-04-18] MEDS: THIAMINE HCL 100 MG TABLET (FP) PO SCH (21:38)
[2018-04-18] MEDS: LIDOCAINE PATCH REMOVAL MC SCH (22:49)
[2018-04-18] MEDS: QUEtiapine FUMARATE 300 MG TABLET PO SCH (22:49)
[2018-04-18] MEDS: traZODone HCL 100 MG TABLET (FP) PO SCH (22:49)
[2018-04-19] MEDS: IBUPROFEN 600 MG TABLET (FP) PO PRN (06:13)
[2018-04-19] MEDS: CYCLOBENZAPRINE HCL 10 MG TABLET (FP) PO PRN ×3 (06:13→21:18)
[2018-04-19] MEDS: LISINOPRIL 20 MG TABLET (FP) PO SCH ×2 (11:45→21:17)
[2018-04-19] MEDS: cloNIDine HCL 0.1 MG TABLET PO SCH ×2 (11:45→21:17)
[2018-04-19] MEDS: PRENATAL VITAMINS W/ FOLIC ACID TABLET (FP) PO SCH (11:49)
[2018-04-19] MEDS: DIVALPROEX SODIUM 500 MG TABLET E.C. PO SCH ×2 (11:49→21:17)
[2018-04-19] MEDS: NICOTINE 21 MG/24 HOURS TOPICAL PATCH TD SCH (11:49)
[2018-04-19] MEDS: LIDOCAINE 5% TOPICAL PATCH TP SCH (11:49)
[2018-04-19] MEDS: RANITIDINE HCL 150 MG TABLET (FP) PO SCH ×2 (11:49→21:17)
--- NOTE | 2018-04-19 13:53 | HP ---
Psychiatrist Admission - Data Date of interview: 04/19/18 Admission source: [address] [place] [address] detox Identifying data: The patient is 47 yo AA mother of 4 grown children,homeless, supported by PA. Medical History: Disk disease. Psychiatric History: Patient started to see a psychiatrist since very young age to address depressed mood,anxiety,sleeping difficulties,mood instability,drug use.First admission was in late 1989 due to severe depression with suicidal thoughts in [place].She was dx with Bipolar disorder.She reports about 7 psychiatric admissions .Patient has no OPD care .She restarted psychotropic medicatiosn while in detox on .She is on Depakote 500 mg po bid, Trazodone 100 mg po hs.Will start Gabapentin 100 mg po tid. Physical/Sexual Abuse/Trauma History: Not willing to discuss. Vital Signs: Vital Signs - 24 hr 04/19/18 04/19/18 04/19/18 00:30 03:30 06:36 Temperature 97.7 F Pulse Rate 121 H Respiratory 18 18 20 Rate Blood Pressure 118/89 04/19/18 04/19/18 09:22 10:59 Temperature 97.9 F Pulse Rate 77 81 Respiratory 18 Rate Blood Pressure 133/93 150/101 H Allergies/Adverse Reactions: Allergies Allergy/AdvReac Type Severity Reaction Status Date / Time No Known Drug Allergies Allergy Verified 04/11/18 17:58 Date of last physical exam: 04/11/18 Concur with the findings of this exam: Yes - Substance Abuse/Tx History Hx Alcohol Use: No Hx Substance Use: Yes Substance Use Type: Heroin, Tranquilizers Hx Substance Use Treatment: Yes (longest abstinence 5 years) Mental Status Exam - Mental Status Exam Alert and Oriented to: Time, Place, Person Cognitive Function: Grossly Intact Patient Appearance: Well Groomed Mood: Sad, Nervous, Anxious Affect: Mood Congruent, Labile Patient Behavior: Cooperative Speech Pattern: Clear Voice Loudness: Normal Thought Process: Goal Oriented Thought Disorder: Not Present Hallucinations: Denies Suicidal Ideation: Denies Homicidal Ideation: Denies Insight/Judgement: Fair Sleep: Fair Muscle strength/Tone: Normal Gait/Station: Normal Psychiatric Findings - Problem List ([place] 1, 2,3) (1) Low back pain with right-sided sciatica Current Visit: Yes Status: Chronic (2) Asthma Current Visit: Yes Status: Chronic (3) Bipolar disorder Current Visit: Yes Status: Chronic (4) Essential hypertension Current Visit: Yes Status: Chronic (5) GERD (gastroesophageal reflux disease) Current Visit: Yes Status: Chronic Qualifiers: (6) Opioid dependence Current Visit: Yes Status: Chronic (7) HTN (hypertension) Current Visit: Yes Status: Chronic Qualifiers: Hypertension type: essential hypertension Qualified Code(s): I10 - Essential (primary) hypertension (8) Nicotine dependence Current Visit: Yes Status: Chronic Qualifiers: Nicotine product type: cigarettes Substance use status: uncomplicated Qualified Code(s): F17.210 - Nicotine dependence, cigarettes, uncomplicated - Initial Treatment Plan Initial Treatment Plan: Seroquel 300 mg po hs and Trazodone 100 mg po hs.Neurontin 100 mg po tid.
--- NOTE | 2018-04-19 13:56 | PN ---
S Progress Note Note: Vital Signs Temperature 97.9 F 04/19/18 10:59 Pulse Rate 81 04/19/18 10:59 Respiratory Rate 18 04/19/18 10:59 Blood Pressure 150/101 H 04/19/18 10:59 O2 Sat by Pulse Oximetry (%) Laboratory Last Values Valproic Acid 56.4 ug/ml (50-100) 04/18/18 07:44 HIV 1&2 Antibody Screen Negative 04/17/18 06:00 HIV P24 Antigen Negative 04/17/18 06:00 Patient reports hx of chronic pelvic pain, sciatica and fibroids. Patient c/o of pelvic pain. Labs reviewed no s/s of bleed present. last u/a unremarkable. Patient currently on flexeril, ibuprofen 600 mg for pain. patient Aox3 no distress no adventitious breath sounds bs non tender non distended full ROM ambulating in the unit fibroids sciatica plan: increase ibuprofen 800 TID continue flexeil warm compress prn continue to monitor for worsening symptoms Patient to follow up with fish hatchery assistant upon discharge
[2018-04-19] MEDS: IBUPROFEN 400 MG TABLET (FP) PO PRN (14:23)
[2018-04-19] MEDS: traZODone HCL 100 MG TABLET (FP) PO SCH (21:17)
[2018-04-19] MEDS: THIAMINE HCL 100 MG TABLET (FP) PO SCH (21:19)
[2018-04-19] MEDS: QUEtiapine FUMARATE 300 MG TABLET PO SCH (21:19)
[2018-04-19] MEDS: LIDOCAINE PATCH REMOVAL MC SCH (21:19)
[2018-04-19] MEDS: hydrOXYzine PAMOATE 50 MG CAPSULE (FP) PO PRN (21:22)
[2018-04-20] MEDS: IBUPROFEN 400 MG TABLET (FP) PO PRN (06:26)
[2018-04-20] MEDS: CYCLOBENZAPRINE HCL 10 MG TABLET (FP) PO PRN ×3 (07:36→21:52)
[2018-04-20] MEDS: PRENATAL VITAMINS W/ FOLIC ACID TABLET (FP) PO SCH (09:55)
[2018-04-20] MEDS: RANITIDINE HCL 150 MG TABLET (FP) PO SCH ×2 (09:55→21:52)
[2018-04-20] MEDS: LISINOPRIL 20 MG TABLET (FP) PO SCH ×2 (09:55→21:52)
[2018-04-20] MEDS: LIDOCAINE 5% TOPICAL PATCH TP SCH (09:55)
[2018-04-20] MEDS: NICOTINE 21 MG/24 HOURS TOPICAL PATCH TD SCH (09:55)
[2018-04-20] MEDS: DIVALPROEX SODIUM 500 MG TABLET E.C. PO SCH ×2 (09:55→21:52)
[2018-04-20] MEDS: cloNIDine HCL 0.1 MG TABLET PO SCH ×2 (09:56→21:52)
[2018-04-20] MEDS: hydrOXYzine PAMOATE 50 MG CAPSULE (FP) PO PRN ×2 (09:57→21:53)
[2018-04-20] MEDS: ACETAMINOPHEN 325 MG TABLET (FP) PO PRN (12:49)
[2018-04-20] MEDS: THIAMINE HCL 100 MG TABLET (FP) PO SCH (21:52)
[2018-04-20] MEDS: traZODone HCL 100 MG TABLET (FP) PO SCH (21:52)
[2018-04-20] MEDS: QUEtiapine FUMARATE 300 MG TABLET PO SCH (21:53)
[2018-04-20] MEDS: LIDOCAINE PATCH REMOVAL MC SCH (21:54)
[2018-04-21] MEDS: CYCLOBENZAPRINE HCL 10 MG TABLET (FP) PO PRN ×2 (06:17→15:57)
[2018-04-21] MEDS: IBUPROFEN 400 MG TABLET (FP) PO PRN (06:17)
[2018-04-21] MEDS: cloNIDine HCL 0.1 MG TABLET PO SCH ×2 (10:27→22:01)
[2018-04-21] MEDS: LIDOCAINE 5% TOPICAL PATCH TP SCH (10:28)
[2018-04-21] MEDS: PRENATAL VITAMINS W/ FOLIC ACID TABLET (FP) PO SCH (10:28)
[2018-04-21] MEDS: NICOTINE 21 MG/24 HOURS TOPICAL PATCH TD SCH (10:28)
[2018-04-21] MEDS: DIVALPROEX SODIUM 500 MG TABLET E.C. PO SCH ×2 (10:28→22:01)
[2018-04-21] MEDS: RANITIDINE HCL 150 MG TABLET (FP) PO SCH ×2 (10:29→22:01)
[2018-04-21] MEDS: LISINOPRIL 20 MG TABLET (FP) PO SCH ×2 (10:29→22:01)
[2018-04-21] MEDS ORDERED: COLLOIDAL OATMEAL 1 BAR EACH TP PRN (12:57)
--- NOTE | 2018-04-21 12:57 | PN ---
S Progress Note Note: Vital Signs Temperature 97.9 F 04/21/18 10:00 Pulse Rate 86 04/21/18 10:00 Respiratory Rate 18 04/21/18 10:00 Blood Pressure 133/91 04/21/18 10:00 O2 Sat by Pulse Oximetry (%) c/o dry scaly skin on both feet tinatctin cream BID vitamin A & D TP continue to monitor
[2018-04-21] MEDS: TOLNAFTATE 1% CREAM 15 GM TUBE TP SCH ×2 (13:55→22:05)
[2018-04-21] MEDS: VITAMINS A AND D TOPICAL OINTMENT 60 GM TUBE TP SCH ×2 (15:40→21:45)
[2018-04-21] MEDS: GABAPENTIN 100 MG CAPSULE (FP) PO SCH ×2 (17:39→22:01)
[2018-04-21] MEDS: THIAMINE HCL 100 MG TABLET (FP) PO SCH (22:01)
[2018-04-21] MEDS: traZODone HCL 100 MG TABLET (FP) PO SCH (22:01)
[2018-04-21] MEDS: LIDOCAINE PATCH REMOVAL MC SCH (22:02)
[2018-04-21] MEDS: QUEtiapine FUMARATE 300 MG TABLET PO SCH (22:03)
[2018-04-21] MEDS: hydrOXYzine PAMOATE 50 MG CAPSULE (FP) PO PRN (22:05)
[2018-04-21] MEDS ORDERED: PT OWN MED DRAWER 7, Y5N ONE (22:05)
[2018-04-22] MEDS: CYCLOBENZAPRINE HCL 10 MG TABLET (FP) PO PRN ×3 (06:08→21:35)
[2018-04-22] MEDS: GABAPENTIN 100 MG CAPSULE (FP) PO SCH ×3 (06:09→21:35)
[2018-04-22] MEDS ORDERED: PT OWN MED DRAWER 7, Y5N ONE (08:34)
[2018-04-22] MEDS: cloNIDine HCL 0.1 MG TABLET PO SCH ×2 (09:02→21:36)
[2018-04-22] MEDS: LIDOCAINE 5% TOPICAL PATCH TP SCH (09:02)
[2018-04-22] MEDS: TOLNAFTATE 1% CREAM 15 GM TUBE TP SCH ×2 (09:02→21:37)
[2018-04-22] MEDS: PRENATAL VITAMINS W/ FOLIC ACID TABLET (FP) PO SCH (09:03)
[2018-04-22] MEDS: RANITIDINE HCL 150 MG TABLET (FP) PO SCH (09:03)
[2018-04-22] MEDS: LISINOPRIL 20 MG TABLET (FP) PO SCH ×2 (09:03→21:35)
[2018-04-22] MEDS: VITAMINS A AND D TOPICAL OINTMENT 60 GM TUBE TP SCH ×2 (09:06→21:35)
[2018-04-22] MEDS: DIVALPROEX SODIUM 500 MG TABLET E.C. PO SCH ×2 (09:07→21:35)
[2018-04-22] MEDS: NICOTINE 21 MG/24 HOURS TOPICAL PATCH TD SCH (09:07)
[2018-04-22] MEDS: hydrOXYzine PAMOATE 50 MG CAPSULE (FP) PO PRN ×2 (15:50→21:35)
[2018-04-22] MEDS: THIAMINE HCL 100 MG TABLET (FP) PO SCH (21:34)
[2018-04-22] MEDS: QUEtiapine FUMARATE 300 MG TABLET PO SCH (21:35)
[2018-04-22] MEDS: traZODone HCL 100 MG TABLET (FP) PO SCH (21:35)
[2018-04-22] MEDS: METHYL SALICYLATE/MENTHOL OINT 30 GM TUBE TP SCH (21:37)
[2018-04-22] MEDS: LIDOCAINE PATCH REMOVAL MC SCH (21:37)
[2018-04-23] MEDS: GABAPENTIN 100 MG CAPSULE (FP) PO SCH ×3 (06:37→21:54)
[2018-04-23] MEDS: CYCLOBENZAPRINE HCL 10 MG TABLET (FP) PO PRN ×2 (06:38→21:54)
--- NOTE | 2018-04-23 09:56 | PN ---
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 Says she has used neurotin for pain and that has helped her with pain. Now on neurontin 100mg TID- states needs a higher dose. Vital Signs - 24 hr 04/22/18 04/23/18 04/23/18 22:45 00:30 03:30 Temperature Pulse Rate 69 Respiratory 18 18 Rate Blood Pressure 134/92 04/23/18 04/23/18 04/23/18 07:07 09:21 09:50 Temperature 97.8 F 98.3 F Pulse Rate 63 86 96 H Respiratory 16 19 Rate Blood Pressure 144/95 150/95 137/90 a/p: pain, chronic pelvic pain- h/o fibriods neurontin for pain now. Pt states will f/u with construction tech at discharge
[2018-04-23] MEDS: DIVALPROEX SODIUM 500 MG TABLET E.C. PO SCH ×2 (09:58→21:54)
[2018-04-23] MEDS: PRENATAL VITAMINS W/ FOLIC ACID TABLET (FP) PO SCH (09:58)
[2018-04-23] MEDS: LISINOPRIL 20 MG TABLET (FP) PO SCH ×2 (09:58→21:54)
[2018-04-23] MEDS: PANTOPRAZOLE 40 MG TABLET (FP) PO SCH (09:58)
[2018-04-23] MEDS: cloNIDine HCL 0.1 MG TABLET PO SCH ×2 (09:59→21:55)
[2018-04-23] MEDS: LIDOCAINE 5% TOPICAL PATCH TP SCH (09:59)
[2018-04-23] MEDS: NICOTINE 21 MG/24 HOURS TOPICAL PATCH TD SCH (09:59)
[2018-04-23] MEDS: METHYL SALICYLATE/MENTHOL OINT 30 GM TUBE TP SCH (09:59)
[2018-04-23] MEDS: VITAMINS A AND D TOPICAL OINTMENT 60 GM TUBE TP SCH ×2 (10:01→21:54)
[2018-04-23] MEDS: TOLNAFTATE 1% CREAM 15 GM TUBE TP SCH ×2 (10:01→21:54)
[2018-04-23] MEDS ORDERED: GABAPENTIN 300 MG CAPSULE (FP) PO ONE (10:30)
[2018-04-23] MEDS: QUEtiapine FUMARATE 300 MG TABLET PO SCH (21:54)
[2018-04-23] MEDS: LIDOCAINE PATCH REMOVAL MC SCH (21:54)
[2018-04-23] MEDS: THIAMINE HCL 100 MG TABLET (FP) PO SCH (21:54)
[2018-04-23] MEDS: traZODone HCL 100 MG TABLET (FP) PO SCH (21:55)
[2018-04-24] MEDS: GABAPENTIN 100 MG CAPSULE (FP) PO SCH ×3 (06:44→22:50)
[2018-04-24] MEDS: cloNIDine HCL 0.1 MG TABLET PO SCH ×3 (07:16→22:53)
[2018-04-24] MEDS: NICOTINE 21 MG/24 HOURS TOPICAL PATCH TD SCH (10:21)
[2018-04-24] MEDS: LIDOCAINE 5% TOPICAL PATCH TP SCH (10:21)
[2018-04-24] MEDS: DIVALPROEX SODIUM 500 MG TABLET E.C. PO SCH ×2 (10:22→22:50)
[2018-04-24] MEDS: PRENATAL VITAMINS W/ FOLIC ACID TABLET (FP) PO SCH (10:22)
[2018-04-24] MEDS: PANTOPRAZOLE 40 MG TABLET (FP) PO SCH (10:22)
[2018-04-24] MEDS: LISINOPRIL 20 MG TABLET (FP) PO SCH ×2 (10:22→22:52)
[2018-04-24] MEDS: METHYL SALICYLATE/MENTHOL OINT 30 GM TUBE TP SCH (10:23)
[2018-04-24] MEDS: VITAMINS A AND D TOPICAL OINTMENT 60 GM TUBE TP SCH ×2 (10:23→21:45)
[2018-04-24] MEDS: TOLNAFTATE 1% CREAM 15 GM TUBE TP SCH ×2 (10:23→22:52)
[2018-04-24] MEDS: hydrOXYzine PAMOATE 50 MG CAPSULE (FP) PO PRN ×2 (12:12→22:51)
[2018-04-24] MEDS: IBUPROFEN 400 MG TABLET (FP) PO PRN (12:12)
[2018-04-24] MEDS: traZODone HCL 100 MG TABLET (FP) PO SCH (22:50)
[2018-04-24] MEDS: THIAMINE HCL 100 MG TABLET (FP) PO SCH (22:50)
[2018-04-24] MEDS: CYCLOBENZAPRINE HCL 10 MG TABLET (FP) PO PRN (22:50)
[2018-04-24] MEDS: LIDOCAINE PATCH REMOVAL MC SCH (22:52)
[2018-04-24] MEDS: QUEtiapine FUMARATE 300 MG TABLET PO SCH (22:52)
[2018-04-25] MEDS: GABAPENTIN 100 MG CAPSULE (FP) PO SCH ×3 (06:18→22:07)
[2018-04-25] MEDS: hydrOXYzine PAMOATE 50 MG CAPSULE (FP) PO PRN ×2 (06:18→10:27)
[2018-04-25] MEDS: CYCLOBENZAPRINE HCL 10 MG TABLET (FP) PO PRN ×2 (06:18→22:07)
[2018-04-25] MEDS: TOLNAFTATE 1% CREAM 15 GM TUBE TP SCH ×2 (10:00→22:08)
[2018-04-25] MEDS: NICOTINE 21 MG/24 HOURS TOPICAL PATCH TD SCH (10:00)
[2018-04-25] MEDS: DIVALPROEX SODIUM 500 MG TABLET E.C. PO SCH ×2 (10:00→22:06)
[2018-04-25] MEDS: LISINOPRIL 20 MG TABLET (FP) PO SCH ×2 (10:00→22:07)
[2018-04-25] MEDS: PRENATAL VITAMINS W/ FOLIC ACID TABLET (FP) PO SCH (10:00)
[2018-04-25] MEDS: LIDOCAINE 5% TOPICAL PATCH TP SCH (10:00)
[2018-04-25] MEDS: VITAMINS A AND D TOPICAL OINTMENT 60 GM TUBE TP SCH ×2 (10:00→22:08)
[2018-04-25] MEDS: PANTOPRAZOLE 40 MG TABLET (FP) PO SCH (10:00)
[2018-04-25] MEDS: METHYL SALICYLATE/MENTHOL OINT 30 GM TUBE TP SCH (10:00)
[2018-04-25] MEDS: cloNIDine HCL 0.1 MG TABLET PO SCH ×2 (10:00→22:06)
[2018-04-25] MEDS: IBUPROFEN 400 MG TABLET (FP) PO PRN (10:01)
[2018-04-25] MEDS: THIAMINE HCL 100 MG TABLET (FP) PO SCH (22:07)
[2018-04-25] MEDS: traZODone HCL 100 MG TABLET (FP) PO SCH (22:08)
[2018-04-25] MEDS: LIDOCAINE PATCH REMOVAL MC SCH (22:08)
[2018-04-25] MEDS: QUEtiapine FUMARATE 300 MG TABLET PO SCH (22:08)
[2018-04-26] MEDS: IBUPROFEN 400 MG TABLET (FP) PO PRN ×2 (06:53→19:34)
[2018-04-26] MEDS: GABAPENTIN 100 MG CAPSULE (FP) PO SCH ×3 (06:55→21:50)
[2018-04-26] MEDS: CYCLOBENZAPRINE HCL 10 MG TABLET (FP) PO PRN (06:56)
[2018-04-26] MEDS: cloNIDine HCL 0.1 MG TABLET PO SCH ×2 (09:54→21:50)
[2018-04-26] MEDS: METHYL SALICYLATE/MENTHOL OINT 30 GM TUBE TP SCH (09:54)
[2018-04-26] MEDS: NICOTINE 21 MG/24 HOURS TOPICAL PATCH TD SCH (09:55)
[2018-04-26] MEDS: DIVALPROEX SODIUM 500 MG TABLET E.C. PO SCH ×2 (09:55→21:50)
[2018-04-26] MEDS: LIDOCAINE 5% TOPICAL PATCH TP SCH (09:55)
[2018-04-26] MEDS: PANTOPRAZOLE 40 MG TABLET (FP) PO SCH (09:55)
[2018-04-26] MEDS: LISINOPRIL 20 MG TABLET (FP) PO SCH ×2 (09:55→21:50)
[2018-04-26] MEDS: PRENATAL VITAMINS W/ FOLIC ACID TABLET (FP) PO SCH (09:55)
[2018-04-26] MEDS: TOLNAFTATE 1% CREAM 15 GM TUBE TP SCH ×2 (09:56→21:51)
[2018-04-26] MEDS: VITAMINS A AND D TOPICAL OINTMENT 60 GM TUBE TP SCH ×2 (09:56→21:51)
[2018-04-26] MEDS: QUEtiapine FUMARATE 300 MG TABLET PO SCH (21:50)
[2018-04-26] MEDS: traZODone HCL 100 MG TABLET (FP) PO SCH (21:50)
[2018-04-26] MEDS: THIAMINE HCL 100 MG TABLET (FP) PO SCH (21:50)
[2018-04-26] MEDS: LIDOCAINE PATCH REMOVAL MC SCH (21:50)
[2018-04-26] MEDS ORDERED: PT OWN MED DRAWER 7, Y5N ONE (21:52)
[2018-04-26] MEDS: hydrOXYzine PAMOATE 50 MG CAPSULE (FP) PO PRN (21:53)
[2018-04-27] MEDS: GABAPENTIN 100 MG CAPSULE (FP) PO SCH ×3 (06:38→21:22)
[2018-04-27] MEDS: IBUPROFEN 400 MG TABLET (FP) PO PRN ×3 (06:39→21:24)
[2018-04-27] MEDS: CYCLOBENZAPRINE HCL 10 MG TABLET (FP) PO PRN ×2 (06:39→15:23)
[2018-04-27] MEDS: ACETAMINOPHEN 325 MG TABLET (FP) PO PRN (09:01)
[2018-04-27] MEDS: cloNIDine HCL 0.1 MG TABLET PO SCH ×2 (09:02→21:22)
[2018-04-27] MEDS: NICOTINE 21 MG/24 HOURS TOPICAL PATCH TD SCH (09:02)
[2018-04-27] MEDS: PRENATAL VITAMINS W/ FOLIC ACID TABLET (FP) PO SCH (09:02)
[2018-04-27] MEDS: DIVALPROEX SODIUM 500 MG TABLET E.C. PO SCH ×2 (09:02→21:22)
[2018-04-27] MEDS: PANTOPRAZOLE 40 MG TABLET (FP) PO SCH (09:02)
[2018-04-27] MEDS: LISINOPRIL 20 MG TABLET (FP) PO SCH ×2 (09:02→21:22)
[2018-04-27] MEDS: VITAMINS A AND D TOPICAL OINTMENT 60 GM TUBE TP SCH ×2 (09:03→21:41)
[2018-04-27] MEDS: TOLNAFTATE 1% CREAM 15 GM TUBE TP SCH ×2 (09:03→21:24)
[2018-04-27] MEDS: METHYL SALICYLATE/MENTHOL OINT 30 GM TUBE TP SCH (09:03)
[2018-04-27] MEDS: LIDOCAINE 5% TOPICAL PATCH TP SCH (09:03)
--- NOTE | 2018-04-27 13:08 | PN ---
[facility] Progress Note Note: PT HAS A HX
[2018-04-27] MEDS ORDERED: amLODIPine BESYLATE 10 MG TABLET (FP) PO ONE (13:45)
[2018-04-27] MEDS: THIAMINE HCL 100 MG TABLET (FP) PO SCH (21:22)
[2018-04-27] MEDS: traZODone HCL 100 MG TABLET (FP) PO SCH (21:22)
[2018-04-27] MEDS: QUEtiapine FUMARATE 300 MG TABLET PO SCH (21:22)
[2018-04-27] MEDS: LIDOCAINE PATCH REMOVAL MC SCH (21:24)
[2018-04-28] MEDS: CYCLOBENZAPRINE HCL 10 MG TABLET (FP) PO PRN ×2 (07:43→18:25)
[2018-04-28] MEDS: cloNIDine HCL 0.1 MG TABLET PO SCH ×2 (07:44→18:24)
[2018-04-28] MEDS: IBUPROFEN 400 MG TABLET (FP) PO PRN ×2 (07:44→18:25)
[2018-04-28] MEDS: GABAPENTIN 100 MG CAPSULE (FP) PO SCH ×2 (07:47→14:37)
[2018-04-28] MEDS ORDERED: PT OWN MED DRAWER 7, Y5N ONE (08:37)
[2018-04-28] MEDS: METHYL SALICYLATE/MENTHOL OINT 30 GM TUBE TP SCH (09:58)
[2018-04-28] MEDS: PANTOPRAZOLE 40 MG TABLET (FP) PO SCH (09:58)
[2018-04-28] MEDS: amLODIPine BESYLATE 10 MG TABLET (FP) PO SCH (09:58)
[2018-04-28] MEDS: LISINOPRIL 20 MG TABLET (FP) PO SCH ×2 (09:58→21:43)
[2018-04-28] MEDS: NICOTINE 21 MG/24 HOURS TOPICAL PATCH TD SCH (09:58)
[2018-04-28] MEDS: DIVALPROEX SODIUM 500 MG TABLET E.C. PO SCH ×2 (09:58→21:43)
[2018-04-28] MEDS: PRENATAL VITAMINS W/ FOLIC ACID TABLET (FP) PO SCH (09:58)
[2018-04-28] MEDS: LIDOCAINE 5% TOPICAL PATCH TP SCH (09:58)
[2018-04-28] MEDS: VITAMINS A AND D TOPICAL OINTMENT 60 GM TUBE TP SCH ×2 (09:59→21:44)
[2018-04-28] MEDS: TOLNAFTATE 1% CREAM 15 GM TUBE TP SCH ×2 (09:59→21:44)
[2018-04-28] MEDS: THIAMINE HCL 100 MG TABLET (FP) PO SCH (21:43)
[2018-04-28] MEDS: hydrOXYzine PAMOATE 50 MG CAPSULE (FP) PO PRN (21:43)
[2018-04-28] MEDS: traZODone HCL 100 MG TABLET (FP) PO SCH (21:43)
[2018-04-28] MEDS: QUEtiapine FUMARATE 300 MG TABLET PO SCH (21:43)
[2018-04-28] MEDS: LIDOCAINE PATCH REMOVAL MC SCH (21:44)
[2018-04-29] MEDS: cloNIDine HCL 0.1 MG TABLET PO SCH ×2 (06:30→18:34)
[2018-04-29] MEDS: IBUPROFEN 400 MG TABLET (FP) PO PRN ×2 (07:30→18:34)
[2018-04-29] MEDS: METHYL SALICYLATE/MENTHOL OINT 30 GM TUBE TP SCH (09:12)
[2018-04-29] MEDS: LISINOPRIL 20 MG TABLET (FP) PO SCH ×2 (09:13→21:51)
[2018-04-29] MEDS: NICOTINE 21 MG/24 HOURS TOPICAL PATCH TD SCH (09:13)
[2018-04-29] MEDS: LIDOCAINE 5% TOPICAL PATCH TP SCH (09:13)
[2018-04-29] MEDS: PANTOPRAZOLE 40 MG TABLET (FP) PO SCH (09:13)
[2018-04-29] MEDS: DIVALPROEX SODIUM 500 MG TABLET E.C. PO SCH ×2 (09:13→21:51)
[2018-04-29] MEDS: PRENATAL VITAMINS W/ FOLIC ACID TABLET (FP) PO SCH (09:13)
[2018-04-29] MEDS: amLODIPine BESYLATE 10 MG TABLET (FP) PO SCH (09:13)
[2018-04-29] MEDS: TOLNAFTATE 1% CREAM 15 GM TUBE TP SCH ×2 (09:14→23:40)
[2018-04-29] MEDS: VITAMINS A AND D TOPICAL OINTMENT 60 GM TUBE TP SCH ×2 (09:14→23:40)
[2018-04-29] MEDS: CYCLOBENZAPRINE HCL 10 MG TABLET (FP) PO PRN ×2 (15:40→21:51)
[2018-04-29] MEDS: ACETAMINOPHEN 325 MG TABLET (FP) PO PRN (15:40)
[2018-04-29] MEDS: THIAMINE HCL 100 MG TABLET (FP) PO SCH (21:50)
[2018-04-29] MEDS: hydrOXYzine PAMOATE 50 MG CAPSULE (FP) PO PRN (21:51)
[2018-04-29] MEDS: traZODone HCL 100 MG TABLET (FP) PO SCH (21:51)
[2018-04-29] MEDS: QUEtiapine FUMARATE 300 MG TABLET PO SCH (21:51)
[2018-04-29] MEDS: LIDOCAINE PATCH REMOVAL MC SCH (23:39)
[2018-04-30] MEDS: cloNIDine HCL 0.1 MG TABLET PO SCH (06:47)
[2018-04-30] MEDS: ACETAMINOPHEN 325 MG TABLET (FP) PO PRN (06:48)
[2018-04-30 07:15] VITALS: TEMP 97.3
--- NOTE | 2018-04-30 08:46 | PN ---
Psychiatric Progress Note Vital Signs: Vital Signs Period Temp Pulse Resp BP Sys/Courtney Pulse Ox Last 24 Hr 97.3 F-98.1 F 75-81 -18 133-161/85-113 Date of Session: 04/30/18 Chief Complaint:: Discharge visit HPI: Patient addressed Opioid dependence comrbid with Bipolar disorder. ROS: BA,Low back pain,GERD,HTN. Current Medications: Active Medications Generic Name Dose Route Start Last Admin Trade Name Freq PRN Reason Stop Dose Admin Acetaminophen 650 mg 04/16/18 12:45 04/30/18 06:48 Tylenol - PO 650 mg Q4H PRN Administration FEVER Al Hydroxide/Mg Hydroxide 30 ml 04/16/18 12:45 04/24/18 12:14 Mylanta Oral Suspension - PO 30 ml Q6H PRN Administration DYSPEPSIA Amlodipine Besylate 10 mg 04/28/18 10:00 04/29/18 09:13 Norvasc - PO 10 mg DAILY EMILE Administration Clonidine 0.2 mg 04/28/18 07:15 04/30/18 06:47 Catapres - PO 0.2 mg BID@0600,1800 EMILE Administration Colloidal Oatmeal 1 applic 04/21/18 12:57 04/21/18 13:54 Aveeno Soap - TP 1 applic DAILY PRN Administration HYGEINE Cyclobenzaprine HCl 10 mg 04/16/18 13:39 04/29/18 21:51 Flexeril - PO 10 mg TID PRN Administration MUSCLE SPASMS Divalproex Sodium 500 mg 04/17/18 12:13 04/29/18 21:51 Depakote - PO 500 mg BID EMILE Administration Eucalyptus/Menthol/Phenol/Sorbitol 1 each 04/16/18 12:45 Cepastat Lozenge - MM Q4H PRN SORE THROAT Guaifenesin 10 ml 04/16/18 12:45 Robitussin Dm - PO Q6H PRN COUGH Hydroxyzine Pamoate 50 mg 04/16/18 12:45 04/29/18 21:51 Vistaril - PO 50 mg Q4H PRN Administration AGITATION Ibuprofen 800 mg 04/19/18 13:55 04/29/18 18:34 Motrin - PO 800 mg TID PRN Administration PAIN LEVEL 6-10 Lidocaine 1 patch 04/16/18 14:00 04/29/18 09:13 Lidoderm Patch - TP 1 patch DAILY EMILE Administration Lisinopril 20 mg 04/17/18 10:30 04/29/18 21:51 Prinivil PO 20 mg BID EMILE Administration Loperamide HCl 4 mg 04/16/18 12:45 Imodium - PO Q6H PRN DIARRHEA Magnesium Citrate 300 ml 04/16/18 12:45 Citroma - PO Q48H PRN CONSTIPATION Magnesium Hydroxide 30 ml 04/16/18 12:45 Milk Of Magnesia - PO DAILY PRN CONSTIPATION Melatonin 5 mg 04/16/18 22:00 Melatonin PO HS PRN INSOMNIA Methyl Salicylate 1 applic 04/22/18 22:00 04/29/18 09:12 Steven-Root - TP Not Given DAILY EMILE Miscellaneous 1 each 04/16/18 22:00 04/29/18 23:39 Lidoderm Patch Removal MC 1 each DAILY@2200 EMILE Administration Nicotine 21 mg 04/17/18 10:00 04/29/18 09:13 Nicoderm Patch - TD Not Given DAILY EMILE Nicotine Polacrilex 4 mg 04/16/18 12:45 04/16/18 13:34 Nicorette Gum - BUC 4 mg Q2H PRN Administration NICOTINE REPLACEMENT RX Pantoprazole Sodium 40 mg 04/23/18 10:00 04/29/18 09:13 Protonix - PO 40 mg DAILY EMILE Administration Multivit/Folic Acid/Iron 1 tab 04/17/18 10:00 04/29/18 09:13 Vitamins (Sjr) - PO 1 tab DAILY EMILE Administration Pseudoephedrine/Triprolidine 1 combo 04/16/18 12:45 Actifed - PO TID PRN NASAL CONGESTION Quetiapine Fumarate 300 mg 04/17/18 22:00 04/29/18 21:51 Seroquel - PO 300 mg HS EMILE Administration Thiamine HCl 100 mg 04/16/18 22:00 04/29/18 21:50 Vitamin B1 - PO 100 mg HS EMILE Administration Tolnaftate 1 applic 04/21/18 13:30 04/29/18 23:40 Tinactin 1% Cream - TP Not Given BID EMILE Trazodone HCl 100 mg 04/17/18 22:00 04/29/18 21:51 Desyrel - PO 100 mg HS EMILE Administration Vitamin A/Vitamin D 1 applic 04/21/18 13:00 04/29/18 23:40 Vitamin A & D Top Oint - TP Not Given BID EMILE Current Side Effect: No Lab tests ordered: No Lab tests reviewed: Yes Provider note:: Patient completed this program today.She has met her treatment goals and will continue to address her issues on outpatient basis at [facility].Patient reports finding that current medications Trazodone 100 mg po hs ,Seroquel 300 mg po hs and Depakote 500 mg po bid help ti cope with mood swings,deression,anxiety,insomnia.Scripts for 30 days previded. Supportive therapy provided focusing on coping skills,support utlization to maintqin recovery. Patient is stable for discharge today. Total face to face time:: 30 Mental Status Exam - Mental Status Exam Alert and Oriented to: Time, Place, Person Cognitive Function: Grossly Intact Patient Appearance: Well Groomed Mood: Euthymic Affect: Normal Range Patient Behavior: Cooperative Speech Pattern: Clear Voice Loudness: Normal Thought Process: Goal Oriented Thought Disorder: Not Present Hallucinations: Denies Suicidal Ideation: Denies Homicidal Ideation: Denies Insight/Judgement: Fair Sleep: Fair Appetite: Good Muscle strength/Tone: Normal Gait/Station: Normal Psychiatric Treatment Plan - Problem List (1) Low back pain with right-sided sciatica Current Visit: Yes (2) Asthma Current Visit: Yes (3) Bipolar disorder Current Visit: Yes (4) Essential hypertension Current Visit: Yes (5) GERD (gastroesophageal reflux disease) Current Visit: Yes Qualifiers: (6) Opioid dependence Current Visit: Yes (7) HTN (hypertension) Current Visit: Yes Qualifiers: Hypertension type: essential hypertension Qualified Code(s): I10 - Essential (primary) hypertension (8) Nicotine dependence Current Visit: Yes Qualifiers: Nicotine product type: cigarettes Substance use status: uncomplicated Qualified Code(s): F17.210 - Nicotine dependence, cigarettes, uncomplicated
[2018-04-30] MEDS ORDERED: PT OWN MED DRAWER 7, Y5N ONE (08:59)
[2018-04-30 09:33] VITALS: BP 144/101; PULSE 82
[2018-04-30] MEDS: amLODIPine BESYLATE 10 MG TABLET (FP) PO SCH (10:06)
[2018-04-30] MEDS: LIDOCAINE 5% TOPICAL PATCH TP SCH (10:06)
[2018-04-30] MEDS: LISINOPRIL 20 MG TABLET (FP) PO SCH (10:06)
[2018-04-30] MEDS: PANTOPRAZOLE 40 MG TABLET (FP) PO SCH (10:06)
[2018-04-30] MEDS: DIVALPROEX SODIUM 500 MG TABLET E.C. PO SCH (10:06)
[2018-04-30] MEDS: METHYL SALICYLATE/MENTHOL OINT 30 GM TUBE TP SCH (10:07)
[2018-04-30] MEDS: NICOTINE 21 MG/24 HOURS TOPICAL PATCH TD SCH (10:08)
[2018-04-30] MEDS: VITAMINS A AND D TOPICAL OINTMENT 60 GM TUBE TP SCH (10:09)
[2018-04-30] MEDS: TOLNAFTATE 1% CREAM 15 GM TUBE TP SCH (10:09)
[2018-04-30] MEDS: PRENATAL VITAMINS W/ FOLIC ACID TABLET (FP) PO SCH (10:09)
== END 2018-04-30 10:13 | disposition home or self-care (01) | DRG 772 ==
LOC: YASAS 11:19 → Y3E 11:22
PROVIDERS: ADMIT Psychiatry & Neurology Psychiatry; ATTEND Psychiatry & Neurology Psychiatry
PROC: HZ42ZZZ Group Counseling for Substance Abuse Treatment, Cognitive-Behavioral (ICD-10-PCS; principal; 2018-04-16)
DX: F10.20 Alcohol dependence, uncomplicated (principal); F17.210 Nicotine dependence, cigarettes, uncomplicated; F31.9 Bipolar disorder, unspecified; F60.3 Borderline personality disorder; I10 Essential (primary) hypertension; J45.909 Unspecified asthma, uncomplicated; M54.41 Lumbago with sciatica, right side; D25.9 Leiomyoma of uterus, unspecified
CPT/HCPCS: 36415; 80164; 87389; J0735